=== PATIENT | male | born 1975 | race Hispanic/Latino ===

== ENCOUNTER 2018-10-12 15:46 | Emergency (ER) | payer BC ==
[2018-10-12] MEDS ORDERED: NA CHLORIDE 0.9% 1,000 ML ONE (16:18)
[2018-10-12] MEDS ORDERED: ONDANSETRON 4 MG/2 ML VIAL ONE (16:18)
[2018-10-12 16:24] LABS: Absolute Lymphocytes (CBC) 1.4 K/uL (0.7-4.9); Absolute Monocytes 0.5 K/uL (0.1-1.3); Absolute Neutrophil 4.4 K/uL (1.8-8.0); Basophils % 1.2 % (0-1.3); Eosinophils % 2.1 % (0-4.4); Hematocrit 47.8 % (39.6-49.0); Lymphocytes % 21.2 % (15.3-44.8); MPV 9.6 fL (7.6-11.3); Monocytes % 7.5 % (3.3-12.3); RBC Red Blood Cell Count 5.56 M/uL (4.33-5.43)
[2018-10-12 16:35] LABS: Bilirubin Direct 0.1 mg/dL (0-0.2); Bilirubin Total 0.5 mg/dL (0.2-1.0); Potassium 3.5 mmol/L (3.5-5.1)
[2018-10-12 16:36] LABS: Albumin 3.6 g/dL (3.4-5.0); Protein, Total 7.8 g/dL (6.4-8.2)
--- NOTE | 2018-10-12 17:26 | EDPHYS ---
Physician Documentation [facility] Name: Amadeo Hopkins Age: 42 yrs Sex: Male : 1975 Arrival Date: 10/12/2018 Time: 15:50 Bed 26 Private MD: ED Physician Jeff Prescott HPI: 10/12 16:09 This 42 yrs old Male presents to ER via Ambulatory with complaints of nausea. jmm 16:09 The patient presents to the emergency department with nausea, vomiting, diarrhea, jmm abdominal pain. Onset: The symptoms/episode began/occurred 2 day(s) ago. Possible causes: bad food exposure, pork. Associated signs and symptoms: Pertinent positives: abdominal pain, diarrhea, vomiting. This is a 42 year old male with no chronic medical conditions that presents to the ED with abdominal pain, vomiting, diarrhea after he states eating pork. Patient denies recent travel, recent abx use, infectious exposure. Patient also complains of lightheadedness but denies dizziness. . Historical: - Allergies: 15:52 No Known Allergies; la1 - PMHx: 15:52 None; la1 - Immunization history:: Adult Immunizations up to date. - Social history:: Smoking status: Patient/guardian denies using tobacco. - Ebola Screening: : No symptoms or risks identified at this time. ROS: 16:09 Constitutional: Negative for fever, chills, and weight loss, Cardiovascular: Negative jmm for chest pain, palpitations, and edema, Respiratory: Negative for shortness of breath, cough, wheezing, and pleuritic chest pain. 16:09 Back: Negative for injury and pain, MS/Extremity: Negative for injury and deformity, Skin: Negative for injury, rash, and discoloration. 16:09 Abdomen/GI: Positive for abdominal pain, nausea and vomiting, diarrhea. 16:09 Neuro: Negative for dizziness. 16:09 All other systems are negative. Exam: 16:09 Constitutional: This is a well developed, well nourished patient who is awake, alert, jmm and in no acute distress. Head/Face: atraumatic. Eyes: EOMI, no conjunctival erythema appreciated ENT: Moist Mucus Membranes Neck: Trachea midline, Supple Chest/axilla: Normal chest wall appearance and motion. Cardiovascular: Regular rate and rhythm. No edema appreciated Respiratory: Normal respirations, no respiratory distress appreciated Abdomen/GI: Non distended, soft 16:09 Abdomen/GI: Inspection: abdomen appears normal, Bowel sounds: normal, Palpation: abdomen is soft and non-tender, in all quadrants. 16:09 Back: pain, is absent, ROM is normal. 16:09 Musculoskeletal/extremity: ROM: intact in all extremities. 16:09 Skin: Appearance: Color: normal in color. 16:09 Neuro: Orientation: is normal, Mentation: is normal, Memory: is normal. 16:09 Psych: Behavior/mood is pleasant, cooperative. Vital Signs: 15:52 BP 122 / 81; Pulse 90; Resp 16; Temp 98.9; Pulse Ox 99% on R/A; Weight 107.95 kg; la1 Height 5 ft. 9 in. (175.26 cm); 17:01 BP 120 / 75; Pulse 79; Resp 18; Pulse Ox 95% on R/A; aj1 15:52 Body Mass Index 35.15 (107.95 kg, 175.26 cm) la1 MDM: 15:59 Patient medically screened. gilda 17:23 Data reviewed: vital signs, nurses notes. Counseling: I had a detailed discussion with lena the patient and/or guardian regarding: the historical points, exam findings, and any diagnostic results supporting the discharge/admit diagnosis, lab results, radiology results, the need for outpatient follow up, to return to the emergency department if symptoms worsen or persist or if there are any questions or concerns that arise at home. ED course: Repeat exam of the patients abdomen is soft and non tender to palpation. Patient states he feels much better. Symptoms appear most likely due to a viral illness. Patient is given early appendicitis return precautions. Patient is otherwise advised to follow up with his pcp. Patient understood and agrees with the plan of care. . 10/12 16:07 Order name: Basic Metabolic Panel; Complete Time: 16:51 [facility] 10/12 16:07 Order name: CBC with Diff; Complete Time: 16: [facility] 10/12 16:07 Order name: Creatinine for Radiology; Complete Time: 16:51 [facility] 10/12 16:07 Order name: Hepatic Function; Complete Time: 16:51 [facility] 10/12 16:07 Order name: Lipase; Complete Time: 16:51 [facility] 10/12 16:07 Order name: IV Saline Lock; Complete Time: 16:07 [facility] 10/12 16:07 Order name: Labs collected and sent; Complete Time: 16:07 [facility] Administered Medications: 16:10 Drug: NS 0.9% 1000 ml Route: IV; Rate: 1 bolus; Site: left antecubital; rv 16:10 Drug: Zofran 4 mg Route: IVP; Site: left antecubital; rv Disposition: 18:06 Co-signature as Attending Physician, Jeff Prescott MD. rn Disposition: 10/12/18 17:25 Discharged to Home. Impression: Vomiting, Diarrhea, unspecified. - Condition is Stable. - Discharge Instructions: Food Choices to Help Relieve Diarrhea, Adult, Diarrhea, Adult, Nausea and Vomiting, Adult. - Prescriptions for Zofran ODT 4 mg Oral tablet,disintegrating - place 1 tablet by TRANSLINGUAL route every 4-6 hours; 30 tablet. - Work release form, Medication Reconciliation Form, Thank You Letter, Antibiotic Education, Prescription Opioid Use form. - Follow up: Private Physician; When: 2 - 3 days; Reason: Recheck today's complaints, Continuance of care, Re-evaluation by your physician. Signatures: Dispatcher [employer] EDMS Eduarda Calixto RN RN aj1 James Brown PA PA [facility] Jeff Prescott MD MD rn Attema, Lee, RN RN la1 Ranjit Resendez, DAVIDSON RN rv Corrections: (The following items were deleted from the chart) 17:47 17:25 10/12/2018 17:25 Discharged to Home. Impression: Vomiting; Diarrhea, unspecified. aj1 Condition is Stable. Forms are Medication Reconciliation Form, Thank You Letter, Antibiotic Education, Prescription Opioid Use. Follow up: Private Physician; When: 2 - 3 days; Reason: Recheck today's complaints, Continuance of care, Re-evaluation by your physician. [facility]
--- NOTE | 2018-10-12 17:26 | ER ---
Nurse's Notes [facility] Name: Amadeo Hopkins Age: 42 yrs Sex: Male : 1975 Arrival Date: 10/12/2018 Time: 15:50 Bed 26 Private MD: Diagnosis: Vomiting;Diarrhea, unspecified Presentation: 10/12 15:51 Presenting complaint: Patient states: I have been dizzy and lightheaded for 2 days with la1 vomiting and some abd pain. Transition of care: patient was not received from another setting of care. Onset of symptoms was October 12, 2018. Risk Assessment: Do you want to hurt yourself or someone else? Patient reports no desire to harm self or others. Initial Sepsis Screen: Does the patient meet any 2 criteria? No. Patient's initial sepsis screen is negative. Does the patient have a suspected source of infection? No. Patient's initial sepsis screen is negative. Care prior to arrival: None. 15:51 Method Of Arrival: Ambulatory la1 15:51 Acuity: REBECA 3 la1 Historical: - Allergies: 15:52 No Known Allergies; la1 - PMHx: 15:52 None; la1 - Immunization history:: Adult Immunizations up to date. - Social history:: Smoking status: Patient/guardian denies using tobacco. - Ebola Screening: : No symptoms or risks identified at this time. Screenin:23 Abuse screen: Denies threats or abuse. Denies injuries from another. Nutritional aj1 screening: No deficits noted. Tuberculosis screening: No symptoms or risk factors identified. 17:46 Fall Risk None identified. aj1 Assessment: 16:23 General: Appears in no apparent distress. comfortable, Behavior is calm, cooperative, aj1 appropriate for age. Pain: Denies pain. Neuro: Level of Consciousness is awake, alert, obeys commands. Cardiovascular: Patient's skin is warm and dry. Respiratory: Airway is patent Respiratory effort is even, unlabored, Respiratory pattern is regular, symmetrical. GI: Abdomen is non-distended, Abd is soft and non tender X 4 quads. Reports diarrhea, nausea, vomiting. : No signs and/or symptoms were reported regarding the genitourinary system. EENT: No signs and/or symptoms were reported regarding the EENT system. Derm: No signs and/or symptoms reported regarding the dermatologic system. Skin is pink, warm \T\ dry. normal. Musculoskeletal: No signs and/or symptoms reported regarding the musculoskeletal system. Circulation, motion, and sensation intact. 17:01 Reassessment: Patient appears in no apparent distress at this time. No changes from aj1 previously documented assessment. Patient and/or family updated on plan of care and expected duration. Pain level reassessed. Patient is alert, oriented x 3, equal unlabored respirations, skin warm/dry/pink. Vital Signs: 15:52 BP 122 / 81; Pulse 90; Resp 16; Temp 98.9; Pulse Ox 99% on R/A; Weight 107.95 kg; la1 Height 5 ft. 9 in. (175.26 cm); 17:01 BP 120 / 75; Pulse 79; Resp 18; Pulse Ox 95% on R/A; aj1 15:52 Body Mass Index 35.15 (107.95 kg, 175.26 cm) la1 ED Course: 15:50 Patient arrived in ED. mr 15:51 Triage completed. la1 15:52 Arm band placed on left wrist. la1 15:57 James Brown PA is PHCP. [facility] 15:57 Jeff Prescott MD is Attending Physician. [facility] 16:05 Inserted saline lock: 20 gauge in left antecubital area, using aseptic technique. Blood rv collected. Missed attempt(s): 20 gauge in right antecubital area. 16:06 Eduarda Calixto, RN is Primary Nurse. aj1 16:23 Patient has correct armband on for positive identification. Bed in low position. Call aj1 light in reach. Side rails up X 1. 16:23 No provider procedures requiring assistance completed. aj1 17:46 IV discontinued, intact, bleeding controlled, No redness/swelling at site. Pressure aj1 dressing applied. Administered Medications: 16:10 Drug: NS 0.9% 1000 ml Route: IV; Rate: 1 bolus; Site: left antecubital; rv 16:10 Drug: Zofran 4 mg Route: IVP; Site: left antecubital; rv Outcome: 17:25 Discharge ordered by . jmm 17:47 Discharged to home ambulatory. aj1 17:47 Condition: good 17:47 Discharge instructions given to patient, Instructed on discharge instructions, follow up and referral plans. medication usage, Demonstrated understanding of instructions, follow-up care, medications, Prescriptions given X 1. 17:47 Patient left the ED. aj1 Signatures: Eduarda Calixto RN RN aj1 James Brown PA PA jmm Rivera, Mary mr Attema, Lee RN RN la1 Ranjit Resendez RN RN rv
== END 2018-10-12 17:47 | disposition home or self-care (01) ==
LOC: ER 15:46
DX: R11.2 Nausea with vomiting, unspecified (principal); R19.7 Diarrhea, unspecified; R10.9 Unspecified abdominal pain
CPT/HCPCS: 36415; 80048; 80076; 83690; 85025; 96374; 99284; J2405; J7030

== ENCOUNTER 2018-11-05 08:48 | Emergency (ER) | payer BC ==
[2018-11-05 09:40] LABS: Protime INR 1.08
[2018-11-05 09:43] LABS: Absolute Lymphocytes (CBC) 1.4 K/uL (0.7-4.9); Absolute Monocytes 0.5 K/uL (0.1-1.3); Absolute Neutrophil 3.9 K/uL (1.8-8.0); Basophils % 0.9 % (0-1.3); Eosinophils % 2.6 % (0-4.4); Hematocrit 48.2 % (39.6-49.0); Lymphocytes % 22.9 % (15.3-44.8); MPV 9.7 fL (7.6-11.3); Monocytes % 8.2 % (3.3-12.3); RBC Red Blood Cell Count 5.69 M/uL (4.33-5.43)
[2018-11-05 09:58] LABS: ALT/SGPT 25 U/L (12-78); AST/SGOT 13 U/L (15-37); Albumin 3.7 g/dL (3.4-5.0); Alkaline Phosphatase 64 U/L (45-117); BUN Blood Urea Nitrogen 16 mg/dL (7-18); Bicarbonate 30 mmol/L (21-32); Bilirubin Direct < 0.1 mg/dL (0-0.2); Bilirubin Total 0.4 mg/dL (0.2-1.0); Glucose Level 101 mg/dL (74-106); Magnesium 2.2 mg/dL (1.8-2.4); NT PRO-BNP 18 pg/mL (<125); Protein, Total 7.9 g/dL (6.4-8.2); Sodium Level 141 mmol/L (136-145); Troponin (Emerg Dept Use Only) < 0.02 ng/mL (0.0-0.045)
--- NOTE | 2018-11-05 10:09 | RAD REPORT ---
EXAM DESCRIPTION: RAD - Chest Single View - 11/05/2018 9:39 am CLINICAL HISTORY: CHEST PAIN Chest pain. COMPARISON: No comparisons FINDINGS: Portable technique limits examination quality. The lungs are underinflated resulting in vascular crowding. The heart is normal in size. No displaced fractures. IMPRESSION: Underinflated lungs.
--- NOTE | 2018-11-05 10:41 | EDPHYS ---
Physician Documentation [facility] Name: Amadeo Hopkins Age: 43 yrs Sex: Male : 1975 Arrival Date: 11/05/2018 Time: 08:50 Bed 8 Private MD: ED Physician Guanako Rick HPI: 11/05 09:19 This 43 yrs old Male presents to ER via Ambulatory with complaints of Chest jm Tightness. 09:19 The patient or guardian reports chest pain that is located primarily in the substernal [facility] area. Onset: gradually, last night. The pain does not radiate. Associated signs and symptoms: Pertinent negatives: abdominal pain, cough, shortness of breath. The chest pain is described as aching. This is a 43 year old male with no chronic medical conditions that presents to the ED with complaints of left sided chest pain. Pain returned this morning. Pain is non exertional. Patient denies recreational drug use, denies tobacco use. . Historical: - Allergies: 09:02 No Known Allergies; iw - Home Meds: 09:02 None [Active]; iw - PMHx: 09:02 None; iw - PSHx: 09:02 None; iw - Immunization history:: Adult Immunizations not up to date. - Social history:: Smoking status: Patient/guardian denies using tobacco. - Ebola Screening: : Patient negative for fever greater than or equal to 101.5 degrees Fahrenheit, and additional compatible Ebola Virus Disease symptoms Patient denies exposure to infectious person Patient denies travel to an Ebola-affected area in the 21 days before illness onset No symptoms or risks identified at this time. ROS: 09:19 Constitutional: Negative for fever, chills, and weight loss. jmm 09:19 Respiratory: Negative for shortness of breath, cough, wheezing, and pleuritic chest pain, Abdomen/GI: Negative for abdominal pain, nausea, vomiting, diarrhea, and constipation, Back: Negative for injury and pain, MS/Extremity: Negative for injury and deformity, Skin: Negative for injury, rash, and discoloration, Neuro: Negative for headache, weakness, numbness, tingling, and seizure. 09:19 Cardiovascular: Positive for chest pain. 09:19 All other systems are negative. Exam: 09:19 Constitutional: This is a well developed, well nourished patient who is awake, alert, jmm and in no acute distress. Head/Face: atraumatic. Eyes: EOMI, no conjunctival erythema appreciated ENT: Moist Mucus Membranes Neck: Trachea midline, Supple 09:19 Chest/axilla: Inspection: normal, Palpation: tenderness, that is mild. 09:19 Cardiovascular: Rate: normal, Rhythm: regular, Pulses: no pulse deficits are appreciated. 09:19 Respiratory: the patient does not display signs of respiratory distress, Respirations: normal, Breath sounds: are clear throughout. 09:19 Abdomen/GI: Inspection: abdomen appears normal, Bowel sounds: normal, Palpation: abdomen is soft and non-tender. 09:19 Musculoskeletal/extremity: ROM: intact in all extremities. 09:19 Skin: Appearance: Color: normal in color. 09:19 Neuro: Orientation: is normal, Mentation: is normal, Memory: is normal, Motor: is normal. 09:19 Psych: Behavior/mood is pleasant, cooperative. Vital Signs: 09:01 BP 123 / 89; Pulse 75; Resp 18; Temp 97.8; Pulse Ox 98% on R/A; Weight 104.33 kg; hj Height 5 ft. 9 in. (175.26 cm); Pain 7/10; 09:02 BP 123 / 89; Pulse 68; Resp 16; Temp 98.0; Pulse Ox 97% on R/A; Pain 7/10; iw 09:53 BP 115 / 72; Pulse 75; Resp 18; Pulse Ox 95% on R/A; hj 10:08 BP 112 / 80; Pulse 69; Resp 16; Pulse Ox 97% ; pc1 10:40 BP 125 / 78; Pulse 68; Resp 18; Pulse Ox 100% on R/A; hj 09:01 Body Mass Index 33.97 (104.33 kg, 175.26 cm) MDM: 09:19 Patient medically screened. [facility] 10:36 CARLOZ Risk Score: TOTAL SCORE = 0. Data reviewed: vital signs, nurses notes, lab test [facility] result(s). ED course: HEART SCORE = 0, PERC SCORE NEGATIVE. Patient appears to have allow likehood for ACS. . 10:36 Data interpreted: Pulse oximetry: on room air is 97 %. Interpretation: normal. Test [facility] interpretation: by ED physician or midlevel provider: ECG. 11/05 09:20 Order name: Basic Metabolic Panel; Complete Time: 10:03 [facility] 11/05 09:20 Order name: CBC with Diff; Complete Time: 10: [facility] 11/05 09:20 Order name: LFT's; Complete Time: 10: [facility] 11/05 09:20 Order name: Magnesium; Complete Time: 10: [facility] 11/05 09:20 Order name: NT PRO-BNP; Complete Time: 10: [facility] 11/05 09:20 Order name: PT-INR; Complete Time: 10: [facility] 11/05 09:05 Order name: EKG; Complete Time: 09: 11/05 09:20 Order name: Troponin (emerg Dept Use Only); Complete Time: 10: [facility] 11/05 09:20 Order name: XRAY Chest (1 view); Complete Time: 10: [facility] 11/05 09:20 Order name: Cardiac monitoring; Complete Time: : [facility] 11/05 09:20 Order name: EKG - Nurse/Tech; Complete Time: : [facility] 11/05 09:20 Order name: IV Saline Lock; Complete Time: : [facility] 11/05 09:20 Order name: Labs collected and sent; Complete Time: : [facility] 11/05 09:20 Order name: O2 Per Protocol; Complete Time: : [facility] 11/05 09:20 Order name: O2 Sat Monitoring; Complete Time: 09:22 jm Administered Medications: No medications were administered Disposition: 18:47 Co-signature as Attending Physician, Guanako Rick MD Available for consultation at ps1 all times. . Disposition: 11/05/18 10:39 Discharged to Home. Impression: Chest pain, unspecified. - Condition is Stable. - Discharge Instructions: Nonspecific Chest Pain. - Medication Reconciliation Form, Thank You Letter, Antibiotic Education, Prescription Opioid Use, Work release form form. - Follow up: Private Physician; When: 2 - 3 days; Reason: Recheck today's complaints, Continuance of care, Re-evaluation by your physician. Follow up: Tunde Camarillo MD; When: As needed; Reason: Recheck today's complaints, Continuance of care, Re-evaluation by your physician. Signatures: Dispatcher [employer] James Estrella PA PA jmm Williams, Irene, RN RN iw Doc Lopez RN RN hj Guanako Rick MD MD ps1 Corrections: (The following items were deleted from the chart) 10:40 10:39 11/05/2018 10:39 Discharged to Home. Impression: Chest pain, unspecified. jmm Condition is Stable. Forms are Medication Reconciliation Form, Thank You Letter, Antibiotic Education, Prescription Opioid Use. Follow up: Private Physician; When: 2 - 3 days; Reason: Recheck today's complaints, Continuance of care, Re-evaluation by your physician. [facility] 10:58 10:40 11/05/2018 10:39 Discharged to Home. Impression: Chest pain, unspecified. hj Condition is Stable. Discharge Instructions: Nonspecific Chest Pain. Forms are Medication Reconciliation Form, Thank You Letter, Antibiotic Education, Prescription Opioid Use. Follow up: Private Physician; When: 2 - 3 days; Reason: Recheck today's complaints, Continuance of care, Re-evaluation by your physician. Follow up: Tunde Camarillo; When: As needed; Reason: Recheck today's complaints, Continuance of care, Re-evaluation by your physician. [facility]
--- NOTE | 2018-11-05 10:41 | ER ---
Nurse's Notes [facility] Name: Amadeo Hopkins Age: 43 yrs Sex: Male : 1975 Arrival Date: 11/05/2018 Time: 08:50 Bed 8 Private MD: Diagnosis: Chest pain, unspecified Presentation: 11/05 09:00 Presenting complaint: Patient states: midsternal chest pain since last night, described iw as sharp, tightness, denies SOB or cough, 03/25. Transition of care: patient was not received from another setting of care. Onset of symptoms was November 04, 2018. Risk Assessment: Do you want to hurt yourself or someone else? Patient reports no desire to harm self or others. Initial Sepsis Screen: Does the patient meet any 2 criteria? No. Patient's initial sepsis screen is negative. Does the patient have a suspected source of infection? No. Patient's initial sepsis screen is negative. Care prior to arrival: None. 09:00 Method Of Arrival: Ambulatory iw 09:00 Acuity: REBECA 3 iw Triage Assessment: 09:03 General: Appears in no apparent distress. uncomfortable, Behavior is calm, cooperative, hj appropriate for age. Pain: Complains of pain in chest Pain radiates to anterior aspect of left shoulder. Cardiovascular: Reports chest pain. Historical: - Allergies: 09:02 No Known Allergies; iw - Home Meds: 09:02 None [Active]; iw - PMHx: 09:02 None; iw - PSHx: 09:02 None; iw - Immunization history:: Adult Immunizations not up to date. - Social history:: Smoking status: Patient/guardian denies using tobacco. - Ebola Screening: : Patient negative for fever greater than or equal to 101.5 degrees Fahrenheit, and additional compatible Ebola Virus Disease symptoms Patient denies exposure to infectious person Patient denies travel to an Ebola-affected area in the 21 days before illness onset No symptoms or risks identified at this time. Screenin:03 Abuse screen: Denies threats or abuse. Denies injuries from another. Nutritional hj screening: No deficits noted. Tuberculosis screening: No symptoms or risk factors identified. Fall Risk None identified. Assessment: 09:04 Pain: Pain began 1 day ago. hj 10:15 Reassessment: Patient and/or family updated on plan of care and expected duration. Pain pc1 level reassessed. Patient is alert, oriented x 3, equal unlabored respirations, skin warm/dry/pink. Vital Signs: 09:01 BP 123 / 89; Pulse 75; Resp 18; Temp 97.8; Pulse Ox 98% on R/A; Weight 104.33 kg; hj Height 5 ft. 9 in. (175.26 cm); Pain 7/10; 09:02 BP 123 / 89; Pulse 68; Resp 16; Temp 98.0; Pulse Ox 97% on R/A; Pain 7/10; iw 09:53 BP 115 / 72; Pulse 75; Resp 18; Pulse Ox 95% on R/A; hj 10:08 BP 112 / 80; Pulse 69; Resp 16; Pulse Ox 97% ; pc1 10:40 BP 125 / 78; Pulse 68; Resp 18; Pulse Ox 100% on R/A; hj 09:01 Body Mass Index 33.97 (104.33 kg, 175.26 cm) ED Course: 08:50 Patient arrived in ED. rg4 08:57 Doc Lopez, DAVIDSON is Primary Nurse. hj 09:01 Triage completed. iw 09:02 Arm band placed on. iw 09:04 James Brown PA is PHCP. jmm 09:04 Guanako Rick MD is Attending Physician. jmm 09:04 Patient has correct armband on for positive identification. Placed in gown. Bed in low hj position. Call light in reach. Side rails up X 1. town marshal on. Pulse ox on. NIBP on. 09:04 Patient maintains SpO2 saturation greater than 95% on room air. hj 09:25 Initial lab(s) drawn, by mt, sent to lab. Inserted saline lock: 20 gauge in left iw antecubital area, using aseptic technique. Blood collected. 09:35 EKG done, by security system technician. reviewed by Guanako Rick MD. at1 09:37 X-ray completed. Portable x-ray completed in exam room. Patient tolerated procedure jb2 well. 09:37 XRAY Chest (1 view) In Process Unspecified. EDMS 10:40 Tunde Camarillo MD is Referral Physician. jmm 10:56 No provider procedures requiring assistance completed. IV discontinued, intact, hj bleeding controlled, No redness/swelling at site. Pressure dressing applied. Administered Medications: No medications were administered Outcome: 10:39 Discharge ordered by MD. paredes 10:57 Attestation : i agree with SN Leonides, assessment and documentations;. mila 10:57 Discharged to home ambulatory. 10:57 Condition: stable 10:57 Discharge instructions given to patient, Instructed on discharge instructions, follow up and referral plans. Demonstrated understanding of instructions, follow-up care. 10:58 Patient left the ED. Signatures: Dispatcher [employer] EDMS James Brown PA PA jmm Buechter, Jesse jb2 Darcy Browning, RN RN Jess Marie, trauma counsellor EKG Tat1 Doc Lopez RN RN hj Garcia, Rubi 4 David Weaver pc1
--- NOTE | 2018-11-05 11:40 | EKG ---
Test Date: 2018-11-05 Test Time: 09:06:52 Building Construction Professor: [place] MEASUREMENT RESULTS: Intervals: Rate: 65 VT: 146 QRSD: 84 QT: 368 QTc: 382 [place]: P: 18 VT: 146 QRS: 24 T: 15 INTERPRETIVE STATEMENTS: Normal sinus rhythm Normal ECG No previous ECG available for comparison Electronically Signed On 11-05-18 11:39:23 FRONT DESK RECEPTIONIST by Tunde Camarillo
== END 2018-11-05 10:58 | disposition home or self-care (01) ==
LOC: ER 08:48
DX: R07.89 Other chest pain (principal)
CPT/HCPCS: 36415; 71045; 80048; 80076; 83735; 83880; 84484; 85025; 85610; 93005; 99285